=== PATIENT | female | born 1995 | race Caucasian/White ===

== ENCOUNTER 2024-12-19 10:39 | Emergency (ER) | payer OTHER, SELFPAY ==
[2024-12-19] VITALS (10 sets, daily range): BP systolic 96–146; BP diastolic 56–88; PULSE 57–94; RESP 14–18; TEMP 36.6; O2SAT 95–100; BMI 29.0
--- NOTE | 2024-12-19 11:13 | ED.ABDPAIN ---
HPI - Abdominal Pain General Chief Complaint: Abdominal Pain Stated Complaint: Pain under right Breast, rib area Time Seen by Provider: 12/19/24 10:44 Source: patient Mode of arrival: Family Vehicle History of Present Illness HPI narrative: 29-year-old female history of dyslipidemia diet-controlled presents with right upper quadrant epigastric pain intermittent over the past few weeks with radiation to the back getting progressively worse with intensity presents for evaluation today. Patient denies fever, chills, body aches, urinary complaint, nausea, vomiting, constipation, but did have some loose stool yesterday. Last menstrual period 2 weeks ago. Other than what is stated 14 point review of system is negative. Related Data Allergies Allergy/AdvReac Type Severity Reaction Status Date / Time No Known Drug Allergies Allergy Verified 12/19/24 10:59 Review of Systems Review of Systems ROS Unobtainable: All systems reviewed & are unremarkable except as noted in HPI and below Patient History Social History Smoking Status: Former smoker Smoking Status: Former smoker tobacco type: cigarettes Exam Narrative Exam Narrative: GENERAL: [29] year old patient appears stated age. Well-developed patient, in mild distress. HEAD: Atraumatic. Normocephalic. EYES: Pupils equal round and reactive. Extraocular motions intact. No scleral icterus. No injection or drainage. ENT: Nose without bleeding, purulent drainage. Throat without erythema, tonsillar hypertrophy or exudate. Airway patent. NECK: Trachea midline. Non tender CARDIOVASCULAR: Regular rate and rhythm without murmurs, gallops, or rubs. RESPIRATORY: Clear to auscultation. Breath sounds equal bilaterally. No wheezes, rales, or rhonchi. GASTROINTESTINAL: Abdomen soft, right upper quadrant nondistended. EXTREMITIES: No edema or joint tenderness. BACK: Nontender without deformity or crepitance. No flank tenderness. NEURO: AOx3. SKIN: No rash or erythema of visible areas Initial Vital Signs Initial Vital Signs: Vital Signs Pulse Rate 93 H 12/19/24 10:52 Respiratory Rate 16 12/19/24 10:52 Blood Pressure 145/88 H 12/19/24 10:52 Pulse Oximetry 99 12/19/24 10:52 Oxygen Delivery Method Room Air 12/19/24 10:52 Course Orders Ordered: ED Orders 12/19/24 11:00 Complete Blood Count AUTO DIFF Stat Comprehensive Metabolic Panel Stat Lipase Stat 12/19/24 11:58 CT abdomen pelvis w con Stat Ondansetron HCl (Ondansetron 4 Mg/2 Ml Inj) 4 mg IV NOW PRN PRN Reason: Nausea And Vomiting Last Admin: 12/19/24 11:47 Dose: 4 mg Documented By: MONIQUE Ondansetron HCl (Ondansetron 4 Mg Odt) 4 mg PO NOW PRN PRN Reason: Nausea And Vomiting Discontinued Medications Lactated Ringer's (Lactated Ringers) 1,000 mls @ 1,000 mls/hr IV BOLUS ONE Stop: 12/19/24 12:11 Last Infusion: 12/19/24 13:39 Dose: Infused Documented By: Admin: 12/19/24 11:46 Dose: 1,000 mls/hr Documented By: MONIQUE Ketorolac Tromethamine (Ketorolac 30 Mg/Ml Vial) 30 mg IV NOW ONE Stop: 12/19/24 11:13 Last Admin: 12/19/24 11:47 Dose: 30 mg Documented By: MONIQUE Vital Signs Vital signs: Vital Signs - 8 hr 12/19/24 10:52 12/19/24 10:58 12/19/24 11:00 Temperature 97.8 F Pulse Rate 93 H 94 H 82 Respiratory Rate 16 18 14 Blood Pressure 145/88 H 145/88 H 146/69 H Pulse Oximetry 99 96 95 Oxygen Delivery Method Room Air Room Air 12/19/24 11:30 12/19/24 12:14 12/19/24 12:30 Temperature Pulse Rate 70 72 60 Respiratory Rate 16 Blood Pressure 109/70 113/71 96/60 Pulse Oximetry 98 99 98 Oxygen Delivery Method MDM - Abdominal Pain Lab Data 12/19/24 11:00 12/19/24 11:00 Labs: Lab Results 12/19/24 Range/Units 11:00 WBC 5.8 (4.5-11.0) X10^3/uL RBC 4.80 (4.0-5.2) X10^6/uL Hgb 13.1 (12.0-16.0) g/dL Hct 39.4 (36-46) % MCV 82.0 (80-100) fL MCH 27.2 (26-34) PG MCHC 33.2 (30-36) % RDW 13.8 (11.6-14.8) % Plt Count 196 (150-400) X10^3/uL Neut % (Auto) 60.5 (50-75) % Lymph % (Auto) 31.2 (25-40) % Kidder % (Auto) 7.1 (3-14) % Eos % (Auto) 0.8 L (2-4) % Baso % (Auto) 0.4 (0-2) % Neut # (Auto) 3500 (2156-1389) /uL Lymph # (Auto) 1800 (2485-4433) /uL Kidder # (Auto) 400 (0-900) /uL Eos # (Auto) 0 (0-450) /uL Baso # (Auto) 0 (0-100) /uL Sodium 138 (137-145) mmol/L Potassium 4.0 (3.4-5.1) mmol/L Chloride 104 (98-107) mmol/L Carbon Dioxide 27 (22-32) mmol/L BUN 16 (7-17) mg/dL Creatinine 0.75 (0.52-1.04) mg/dL Estimated GFR > 60 (>60) mL/min BUN/Creatinine Ratio 21.3 (6-22) Glucose 88 (70-99) mg/dL Calcium 9.9 (8.4-10.2) mg/dL Total Bilirubin 0.5 (0.2-1.3) mg/dL AST 28 (14-36) IU/L ALT 21 (<35) IU/L Alkaline Phosphatase 61 (38-126) U/L Total Protein 8.0 (6.3-8.2) g/dL Albumin 4.8 (3.5-5.0) g/dL Globulin 3.2 (1.7-4.1) g/dL Albumin/Globulin Ratio 1.5 (1.0-2.8) Lipase 135 (23-300) U/L Point of care testing: Point of Care Testing Test Results Negative Urine Dip Bedside Urine Glucose Negative Bedside Urine Bilirubin - Negative Bedside Urine Ketone - Negative Urine Specific Argyle 1.010 Bedside Urine Occult Blood - Negative Bedside Urine pH 7.5 Bedside Urine Protein - Negative Bedside Urine Urobilinogen - Negative Bedside Urine Nitrite - Negative Bedside Urine Leukocytes - Negative Esterase Imaging Data CT scan - abdomen/pelvis: Radiologist's Impression: [address] [address] [address] Scan Report Signed Patient: Colette Villa#: [id number] : 1995 Acct:[id number] Age/Sex: 29 / F Date of Service: 12/19/24 Loc: ED Accession Number: [id number] Procedure: CT abdomen pelvis w con Ordering Provider: Man Nava D.O. PROCEDURE: CT ABDOMEN PELVIS W CON INDICATIONS: abd pain TECHNIQUE: After the administration of intravenous contrast, axial sections acquired from the lung bases to the pubic symphysis. Coronal and sagittal reformats were performed. For radiation dose reduction, the following was used: automated exposure control, adjustment of mA and/or kV according to patient size. COMPARISON: None. FINDINGS: Image quality: Diagnostic. Lower Chest: No significant findings. ABDOMEN: Liver: No solid mass. Gallbladder: No radiopaque gallstones or wall thickening. Biliary ducts: No biliary dilation. Pancreas: No ductal dilation. Spleen: Size is within normal limits. Adrenal Glands: No adrenal nodules. Kidneys and Ureters: No hydronephrosis. No solid mass. No complex renal cystic lesion which requires follow up. Stomach and Bowel: There is suggestion of mild diffuse gastric wall thickening. No small bowel or colon wall thickening. Avgg-um-oyjmpnla fecal stasis in the colon is seen. Appendix is not definitively identified. No focal inflammatory changes are noted in right lower quadrant abdomen. No abscess collection. Peritoneum: No abnormal intraperitoneal fluid. No free air. Ventral Wall: No significant ventral hernia. Abdominal Nodes: No retroperitoneal or mesenteric adenopathy by size criteria. Vessels: Aorta and inferior vena cava are normal in size. PELVIS: Pelvic Organs: Unremarkable. Bladder: No bladder wall thickening, accounting for underdistention. Pelvic Nodes: No enlarged lymph nodes. Miscellaneous: No inguinal hernias are seen. Bones: No aggressive osseous abnormality. IMPRESSION: 1. Finding is concerning for mild infectious or inflammatory gastritis suggest clinical correlation. 2. Liin-fx-drxjzjql constipation. No small bowel or colon wall thickening. No free fluid or free air. 3. No obstructing renal stones or hydronephrosis. MDM Narrative Medical decision making narrative: All labwork, vital signs, solar installer technician note, previous ER visits and all imaging studies reviewed. Finding is concerning for mild infectious or inflammatory gastritis suggest clinical correlation.2. Rzix-vy-lwmlmapr constipation. No small bowel or colon wall thickening. No free fluid or free air. Pt given LR 1L bolus, toradol, protonix and lactuolse. Differential dx - pancraetitis, cholecycstitis, diverticultis, constipation, uti, kidney stone, kidney infection. D/c home on protonix and lactulose. Discharge Plan Departure Patient Disposition: Home Clinical Impression: Gastritis Qualifiers: Gastritis type: unspecified gastritis Chronicity: acute Gastritis bleeding: without bleeding Qualified Code(s): K29.00 - Acute gastritis without bleeding Constipation Qualifiers: Constipation type: slow transit constipation Qualified Code(s): K59.01 - Slow transit constipation Instructions: DI for Gastritis Activity Restrictions/Additional Instructions: Return with new or worsening symptoms. Take your medicine as directed. Follow up with PCP 1-2 weeks if no improvement in symptoms. Stand Alone Forms: Patient Portal/API
[2024-12-19 11:23] LABS: Add Manual Diff / Slide Review NO; Hematocrit 39.4 % (36-46); Hemoglobin 13.1 g/dL (12.0-16.0); Lymphocytes Absolute Auto 1800 /uL (1100-4500); Mean Corpuscular HGB Conc 33.2 % (30-36); Mean Corpuscular Hemoglobin 27.2 PG (26-34); Mean Corpuscular Volume 82.0 fL (80-100); Platelet Count 196 X10^3/uL (150-400)
[2024-12-19 11:30] LABS: Alanine Aminotransferase 21 IU/L (<35); Albumin 4.8 g/dL (3.5-5.0); Albumin Globulin Ratio 1.5 (1.0-2.8); Alkaline Phosphatase 61 U/L (38-126); Blood Urea Nitrogen 16 mg/dL (7-17); Calcium 9.9 mg/dL (8.4-10.2); Carbon Dioxide 27 mmol/L (22-32); Chloride 104 mmol/L (98-107); Estimated Glomerular Filt Rate > 60 mL/min (>60); Globulin 3.2 g/dL (1.7-4.1); Glucose 88 mg/dL (70-99); HEMOLYSIS 18 (0-50); Lipase 135 U/L (23-300); Potassium 4.0 mmol/L (3.4-5.1); Sodium 138 mmol/L (137-145); Total Protein 8.0 g/dL (6.3-8.2)
[2024-12-19] MEDS: LACTATED RINGERS 1,000 ML 1000 ML IV (11:46)
[2024-12-19] MEDS: KETOROLAC 30 MG/ML VIAL IV (11:47)
[2024-12-19] MEDS: ONDANSETRON 4 MG/2 ML INJ IV (11:47)
--- NOTE | 2024-12-19 11:58 | DI.CT.S_ITS ---
PROCEDURE: CT ABDOMEN PELVIS W CON INDICATIONS: abd pain TECHNIQUE: After the administration of intravenous contrast, axial sections acquired from the lung bases to the pubic symphysis. Coronal and sagittal reformats were performed. For radiation dose reduction, the following was used: automated exposure control, adjustment of mA and/or kV according to patient size. COMPARISON: None. FINDINGS: Image quality: Diagnostic. Lower Chest: No significant findings. ABDOMEN: Liver: No solid mass. Gallbladder: No radiopaque gallstones or wall thickening. Biliary ducts: No biliary dilation. Pancreas: No ductal dilation. Spleen: Size is within normal limits. Adrenal Glands: No adrenal nodules. Kidneys and Ureters: No hydronephrosis. No solid mass. No complex renal cystic lesion which requires follow up. Stomach and Bowel: There is suggestion of mild diffuse gastric wall thickening. No small bowel or colon wall thickening. Udss-iq-hknmrexq fecal stasis in the colon is seen. Appendix is not definitively identified. No focal inflammatory changes are noted in right lower quadrant abdomen. No abscess collection. Peritoneum: No abnormal intraperitoneal fluid. No free air. Ventral Wall: No significant ventral hernia. Abdominal Nodes: No retroperitoneal or mesenteric adenopathy by size criteria. Vessels: Aorta and inferior vena cava are normal in size. PELVIS: Pelvic Organs: Unremarkable. Bladder: No bladder wall thickening, accounting for underdistention. Pelvic Nodes: No enlarged lymph nodes. Miscellaneous: No inguinal hernias are seen. Bones: No aggressive osseous abnormality. IMPRESSION: 1. Finding is concerning for mild infectious or inflammatory gastritis suggest clinical correlation. 2. Zpfl-xc-tosrdiuo constipation. No small bowel or colon wall thickening. No free fluid or free air. 3. No obstructing renal stones or hydronephrosis. Dictated by: Dmitriy Lugo M.D. on 12/19/2024 at 12:13 Approved by: Dmitriy Lugo M.D. on 12/19/2024 at 12:15
[2024-12-19] MEDS: LACTULOSE 20 GM/30 ML SOLUTION PO (14:36)
[2024-12-19] MEDS: PANTOPRAZOLE 40 MG VIAL IV (14:36)
== END 2024-12-19 15:06 | disposition home or self-care (01) ==
PROVIDERS: Emergency Provider Family Medicine
DX: K29.00 Acute gastritis without bleeding (principal); K59.01 Slow transit constipation; Z87.891 Personal history of nicotine dependence
CPT/HCPCS: 36415; 74177; 80053; 81003; 81025; 83690; 85025; 96361; 96374; 96375; 99284; J1885; J2405; J2470; Q9967